=== PATIENT | male | born 1960 | race Caucasian/White ===

== ENCOUNTER 2019-06-07 15:52 | Inpatient (IN) | payer BC ==
[2019-06-07] VITALS (17 sets, daily range): BP systolic 101–120; BP diastolic 43–76
[~2019-06-07] VITALS: Ht 170.2 cm; Wt 86.1 kg
[~2019-06-07 15:52] MED LIST: ASPIRIN81 M2 PO; HUMALOG100 UNIT/1 SQ; KEFLEX500 MG PO; LANTUS SUBQ; LEVAQUIN 500 M500 MG PO; PRAVACHOL40 MG PO; SYNTHROID88 MCG PO; VITAMIN D35000 UNI2 PO
[2019-06-07 16:15] LABS: ABSOLUTE BASOPHILS 0.1 thou/uL (0.0-0.2); ABSOLUTE EOSINOPHILS 0.2 thou/uL (0.0-0.7); ABSOLUTE LYMPHOCYTES 4.2 thou/uL (0.8-5.3); ABSOLUTE MONOCYTES 0.9 thou/uL (0.0-1.2); ABSOLUTE NEUTROPHILS 5.2 thou/uL (1.6-8.1); EOSINOPHILS 1.9 %; HEMATOCRIT 48.2 % (42.0-52.0); HEMOGLOBIN 16.1 gm/dL (14.0-18.0); LYMPHOCYTES 39.7 %; MCHC 33.4 g/dL (28.0-37.0); MCV 92.9 fL (80.0-100.0); MONOCYTES 8.1 %; MPV 8.9 fl. (7.2-11.1); NUCLEATED RBCS 0 /100WBC; PLATELET COUNT* 279 thou/uL (150-400); POLYS 49.3 %; RBC 5.19 mil/uL (4.50-6.00); RDW-CV 12.7 % (10.5-14.5); WBC 10.6 thou/uL (4.0-11.0)
[2019-06-07 16:26] LABS: APTT 24.5 Seconds (25.0-31.3); PROTIME 10.1 Seconds (9.20-11.50)
[2019-06-07 16:28] LABS: CALCIUM 8.8 mg/dL (8.5-10.1); CREATININE 1.1 mg/dL (0.6-1.3); POTASSIUM 4.2 mmol/L (3.5-5.1)
[2019-06-07 16:39] LABS: ALBUMIN 3.7 g/dL (3.4-5.0); MAGNESIUM 2.1 mg/dL (1.8-2.4); TOTAL BILIRUBIN 0.4 mg/dL (<0.1-1.0); TOTAL PROTEIN 7.1 g/dL (6.4-8.2)
--- NOTE | 2019-06-07 17:05 | NUR ---
ALL INTERVENTIONS AND MEDICATIONS GIVEN ARE DOCUMENTED ON THE STEMI LOG. PT TAKEN TO GAME TECHNICIAN.
[2019-06-07 21:53] LABS: BE -17.6 mmol/L (-2 to +3); PO2 75.3 mmHg (75.0-100.0)
[2019-06-07 21:54] LABS: PCO2 89.1 mmHg (35.0-45.0)
[2019-06-08] VITALS (90 sets, daily range): BP systolic 68–161; BP diastolic 25–94
[2019-06-08 00:06] LABS: BE -15.9 mmol/L (-2 to +3); PO2 81.8 mmHg (75.0-100.0)
[2019-06-08 00:07] LABS: PCO2 78.2 mmHg (35.0-45.0); pH 6.973 (7.340-7.450)
[2019-06-08 02:21] LABS: HEMATOCRIT 50.2 % (42.0-52.0); MCH 30.4 pg (26.0-34.0); MCHC 31.9 g/dL (28.0-37.0); MCV 95.4 fL (80.0-100.0); MPV 8.7 fl. (7.2-11.1); RBC 5.26 mil/uL (4.50-6.00); RDW-CV 13.3 % (10.5-14.5); WBC 25.3 thou/uL (4.0-11.0)
[2019-06-08 02:38] LABS: BE -12.1 mmol/L (-2 to +3); PO2 104.7 mmHg (75.0-100.0)
[2019-06-08 02:40] LABS: PCO2 51.4 mmHg (35.0-45.0); pH 7.142 (7.340-7.450)
[2019-06-08 03:01] LABS: ALBUMIN 2.7 g/dL (3.4-5.0); ALKALINE PHOSPHATASE 57 U/L (46-116); ANION GAP 13 mmol/L (7-16); BUN 29 mg/dL (7-18); CHLORIDE 98 mmol/L (98-107); CHOLESTEROL 166 mg/dL (<200); CO2 20 mmol/L (21-32); HDL CHOLESTEROL 63 mg/dL (>40); LDL CHOLESTEROL 90 mg/dL (<100); SGOT 1106 U/L (15-37); SGPT 202 U/L (30-65); SODIUM 131 mmol/L (136-145); TC:HDL 2.6 Ratio (Not establshd); TOTAL BILIRUBIN 0.5 mg/dL (<0.1-1.0); TOTAL PROTEIN 5.8 g/dL (6.4-8.2); TRIGLYCERIDE 65 mg/dL (<150); VLDL 13 mg/dL (<40)
[2019-06-08 03:46] LABS: CALCIUM 6.5 mg/dL (8.5-10.1); CREATININE 2.4 mg/dL (0.6-1.3)
[2019-06-08 03:47] LABS: POTASSIUM 6.2 mmol/L (3.5-5.1)
[2019-06-08 03:48] LABS: CK-MB MASS > 900.0 ng/mL (<0.5-3.6); GLUCOSE 654 mg/dL (70-99); SERUM ASSESSMENT CLEAR; TROPONIN-I LEVEL > 200.00 ng/mL (<0.06)
[2019-06-08 04:32] LABS: POTASSIUM 4.5 mmol/L (3.5-5.1)
--- NOTE | 2019-06-08 04:50 | NUR ---
Pt transferred to ICU from [facility] following emergent PCI, arrived at 1910. Pt unresponsive, on Dopamine gtt, Levophed gtt, and IABP. Intubated and on ventilator. ABGs X3 with critical results for pH and pCO2, but improving after adjustments to ventilator settings. Also started on insulin gtt for BG control. Pt Temp too low to be obtained upon arrival to ICU. Michael Tellez initiated. Eventually, Michael Tellez dc'd as temp lyudmila above 98.6. T max 101. Pt diaphoretic. Pt now has cough reflex. Will continue to monitor.
[2019-06-08 07:02] LABS: PCO2 40.9 mmHg (35.0-45.0); PO2 115.4 mmHg (75.0-100.0)
[2019-06-08 07:05] LABS: pH 7.198 (7.340-7.450)
--- NOTE | 2019-06-08 08:32 | CON ---
[address] [address] CONSULTATION Name: GWENDOLYN RODRIGUEZ Room: [address] IN .R.#: [id number] Admission: 06/07/19 Attend Phys: Ho Bales MD Discharge: Date of : 62 Report #: [id number] THIS REPORT FOR: //name// CC: Ho Riojas DATE OF SERVICE: 06/07/2019 CARDIOLOGY CONSULTATION INDICATION: Chest pain. HISTORY OF PRESENT ILLNESS: This is a 59-year-old gentleman with history of diabetes, hypertension, tobacco use, presenting with chest pain and shortness of breath. The patient is presently intubated. History is obtained from medical records. It seems that he was having chest pain radiating to both arms on and off for the past several days. Tod, it got worse and he felt dyspneic and diaphoretic. He tried to drive to the hospital, unable to. He called 911. EKG by EMS revealed sinus tachycardia with Q-waves in the anteroseptal leads with ST elevation in V1 through V4 and aVL, ST depressions in the inferior leads. In the ER, he was noted to be in respiratory distress and required intubation. He is presently in sinus rhythm. ALLERGIES: PENICILLIN. MEDICATIONS: Include insulin, aspirin, and Pravachol at home. SOCIAL HISTORY: Positive tobacco, at least 1-1/2 packs per day. FAMILY HISTORY: Unobtainable. REVIEW OF SYSTEMS: Unobtainable. PHYSICAL EXAMINATION: VITAL SIGNS: Blood pressure is 100/60. Heart rate is 120 beats per minute. GENERAL APPEARANCE: This is a well-developed, well-nourished male, intubated and sedated. HEENT: Normocephalic, atraumatic. NECK: Supple. LUNGS: Diminished breath sounds at the bases. CARDIAC: Tachycardic. S1, S2 positive. ABDOMEN: Soft, nontender. EXTREMITIES: No cyanosis, no edema. ECG reveals sinus tachycardia, Q WAVES in V1 through V3 with ST elevation in aVL and ST depression in the inferior leads, [place] [address] CONSULTATION Name: GWENDOLYN RODRIGUEZ Room: [address] IN [facility]#: [id number] Admission: 06/07/19 Attend Phys: Ho Bales MD Discharge: Date of : 62 Report #: [id number] ASSESSMENT AND PLAN: 1. Acute coronary syndrome, acute myocardial infarction. The initial troponin level is 2.2. Suspect the infarct occurred within the past few days. We will proceed with cardioversion and cardiac catheterization. 2. Respiratory failure/congestive heart failure, most likely attributed to recent myocardial infarction. We will need ICU support. 3. Diabetes mellitus, on insulin, as per hospitalist. 4. Tobacco use, we will recommend complete smoking cessation. <ELECTRONICALLY SIGNED> By: Luis Glasgow MD 06/08/19 0832 1654 2131MD merlene Lopez
[2019-06-08 09:13] LABS: INFLUENZA A ANTIGEN Negative (Negative); INFLUENZA B ANTIGEN Negative (Negative)
[2019-06-08 09:13] LABS: URINE BLOOD 3+ (Negative); URINE CLARITY SL CLOUDY; URINE COLOR YELLOW; URINE GLUCOSE-RANDOM NEGATIVE (Negative); URINE KETONES NEGATIVE (Negative); URINE LEUKOCYTES-REFLEX NEGATIVE (Negative); URINE NITRITE-REFLEX NEGATIVE (Negative); URINE PROTEIN 2+ (Negative); URINE SPECIFIC GRAVITY 1.015 (1.005-1.030); URINE UROBILINOGEN 0.2 E.U./dl (0.2-1.0)
[2019-06-08 09:34] LABS: URINE POTASSIUM-RANDOM 59.9 mmol/L
[2019-06-08 10:01] LABS: URINE BILIRUBIN 1+ (Negative)
[2019-06-08 10:02] LABS: ICTOTEST (BILI CONFIRMATORY) Negative (Negative)
--- NOTE | 2019-06-08 10:26 | CARD ---
[address] [address] CARDIAC CATH REPORT Name: GWENDOLYN RODRIGUEZ Room: [address] IN M.R.#: [id number] Admission: 06/07/19 Attend Phys: Ho Bales MD Discharge: Date of : 62 Report #: [id number] THIS REPORT FOR: //name// APPROVED REPORT Study performed: 06/07/2019 16:19:14 Patient Details The patient is a 59 year-old male Event Personnel May Rust Smart Grid Engineer, Julio Constantino ADULT NEUROLOGIST Monitor, Ho Mcleod ADULT NEUROLOGIST Scrub, Luis Glasgow Tool Design Checker Indication CHF Current Status: Yes , STEMI , Dyspnea, Chest pain, The patient presented with several days of chest pain, but developed significant dyspnea prior to admission. In the ER, he was in respiratory failure, requiring intubation. The ECG revealed Q waves in the anteroseptal leads with ST elevation, suggestive for aneurysm formation. He developed hypotension attributed to cardiogenic shock. Prior to cardiac catheterization, he was started on multiple pressors and an intra-aortic balloon pump was placed. Risk Factors Hypercholesterolemia, Hypertension, Diabetes Tobacco History () Procedure Narrative A 6fr Ultimum Sheath sheath was inserted into the RFA. Coronary angiography was performed using coronary diagnostic catheters. The right coronary system was accessed and visualized with a JR4 catheter. The left coronary system was accessed and visualized with a JL4 catheter. The left ventricle was accessed and visualized with a PIG catheter. Intraoperative Conscious Sedation Fluoro Time: 19 minutes Dose: DAP [id number] cGycm2 3021 mGy Contrast Type and Amount: Visipaque 350 ml Coronary Angiography The patient's coronary [place] [address] CARDIAC CATH REPORT Name: GWENDOLYN RODRIGUEZ Room: [address] IN [facility]#: [id number] Admission: 06/07/19 Attend Phys: Ho Bales MD Discharge: Date of : 62 Report #: [id number] Diagnostic Cath Left Main This is a large caliber vessel with a haziness in the mid and distal segments. LAD There is a subtotal occlusion at the ostium, with SHARON 1 blood flow. Circumflex This vessel was completely occluded at the ostium, has evidence for calcification. Right Coronary This vessel was patent with a moderate stenosis in the proximal segment. R PDA This vessel was patent with a moderate stenosis in the proximal segment. RPLV This vessel was patent. Left Ventriculography The left ventricle is dilated in size with abnormal contractility. The left ventricular ejection fraction is estimated to be 10-15%. Left ventricular wall motion abnormalities are present. Only the basal inferior segment exhibited contractility. Hemodynamics The aortic pressure is 119/55 mmHg with a mean of 34 mmHg. The left ventricular pressure is 62/5 mmHg with a mean of mmHg. The left ventricular end diastolic pressure is 23 mmHg. PCI Technique Lesion Patient was preloaded with Angiomax IV 11 ml. Percutaneous coronary intervention was performed on the proximal left anterior descending artery segment. The lesion stenosis prior to intervention was 99% with SHARON 1 flow. A 6FR XB 3.5 100CM Guide Catheter was used to engage the ostium. A IG: Luge Wire 180 Interventional Guidewire was used to cross the lesion. BALLOON DILATION A Balloon catheter Trek RX 2.5 X 15 was inserted and inflated up to 12.00atm for 7seconds. Additional Inflation: 13.00atm for 15seconds. STENT DEPLOYMENT A drug-eluting stent Zeeshan RX Stent 3.0X18mm was inserted and inflated up to 12.00atm for 6seconds. The stent was postdilated with a 3.25 mm noncompliant balloon, inflated up to 18 tarah. Final angiography reveals 10 % stenosis with SHARON 3 [place] [address] CARDIAC CATH REPORT Name: GWENDOLYN RODRIGUEZ Room: [address]#: [id number] Admission: 06/07/19 Attend Phys: Ho Bales MD Discharge: Date of : 62 Report #: [id number] A stent Zeeshan RX Stent 3.0X15mm was inserted and inflated up to tarah for seconds. Additional Inflation: 20.00atm for 16seconds. PCI Technique Lesion 2 Percutaneous coronary intervention was performed on the left main artery. The lesion stenosis prior to intervention was 70% with SHARON 1 flow. Balloon Dilation A Balloon catheter Zeeshan RX Stent 3.5X12mm was inserted and inflated up to 18atm for 10seconds. Final angiography reveals 0 % stenosis with SHARON 3 flow. STENT DEPLOYMENT A stent Zeeshan RX Stent 3.5X12mm was inserted and inflated up to tarah for seconds. Additional Inflation: 18.00atm for 6seconds. PCI Technique Lesion 3 Percutaneous coronary intervention was performed on the mid LAD. The lesion stenosis prior to intervention was 80% with SHARON 1 flow. Balloon Dilation A Balloon catheter Georgiana RX Stent 2.5 X18mm was inserted and inflated up to 18atm for 10seconds. Final angiography reveals 5 % stenosis with SHARON 3 flow. Conclusion 1. The patient presented in critical condition with cardiogenic shock, requiring multiple pressors and IABP insertion. 2. Placement of drug-eluting stents into the left main and proximal LAD segments, with latter-day of SHARON-3 blood flow. 3. 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 4. The RCA is a dominant vessel with moderate lesions. 5. Severe LV dysfunction, manifested with hypotension and heart failure. 6. Recommend full ICU support and dual antiplatelet therapy. <ELECTRONICALLY SIGNED> By: Luis Glasgow MD 06/08/19 1026 1026 1026Luis Glasgow MD /INF
[2019-06-08 10:33] LABS: COARSE GRANULAR CASTS >10 Many /LPF (None Seen); FINE GRANULAR CASTS 0-3 Few /LPF (None Seen); HYALINE CASTS 0-3 Few /LPF (None Seen)
[2019-06-08 10:35] LABS: BACTERIA-REFLEX >30 Many /HPF (None Seen); MUCUS 0-3 Light strn/LPF (None Seen); SQUAMOUS 0-3 Few /LPF (0-3)
[2019-06-08 10:36] LABS: CRYSTALS None Seen /LPF (None Seen)
[2019-06-08 12:40] LABS: BE -7.8 mmol/L (-2 to +3); PCO2 37.6 mmHg (35.0-45.0); PO2 97.1 mmHg (75.0-100.0)
[2019-06-08 12:41] LABS: pH 7.297 (7.340-7.450)
--- NOTE | 2019-06-08 14:14 | NUR ---
PT CONTINUES TO BE ON 1:1 RATIO.PT IS MOSTLY UNRESPONSIVE ALTHOUGH PT SQUEEZED EYES WHILE NASAL SWABS WERE COLLECTED.PT REMAINS INTUBATED PER ORDERED SETTINGS.PULMONARY CONSULTED FOR VENT MANAGEMENT.PT REMAINS ON BALLOON PUMP THROUGH LEFT GROIN-SITE CLEAN, DRY, AND INTACT.NS/HEPARIN (1000ML/1000UNITS) MIX PRESSURE BAG SET UP THROUGH BALLOON PUMP MACHINE TO MONITOR PT INTERNAL BLOOD PRESSURE, WITH ASSISTANCE FROM CLINICAL STAFF EDUCATOR.RIGHT FEMORAL CENTRAL SHEATH SECURE AND PATENT WITH IVF INFUSING.VASOPRESSIN INFUSION STARTED.SLOWLY TITRATING DOPAMINE DOWN.HEART RATE SLOWLY DECREASING. RIGHT GROIN ART LINE SECURE AND PATENT.DELANEY SECURE AND PATENT WITH ADEQUATE URINE OUTPUT.NEW UROMETER BAG PLACED TO MONITOR HOURLY I&O.RADIAL AND PEDIAL PULSES DOPPLERED AND MARKED FOR Q1 HOUR CHECKS. PULSES REMAIN WEAK AND EXTREMITIES ARE COOL.PT HAS RAN LOW GRADE FEVER THIS SHIFT.Q1 HOUR AUGMENTATION CHECKS COMPLETED ON BALLOON PUMP WITH STRIPS PRINTED Q4HR.PT INSULIN SHUT OFF @ 1404 DUE TO HYPOGLYCEMIA-DOCTOR NOTIFIED FOR NEW ORDERS.NG SECURE @ 64 WITH LIS-COFFEE GROUND DRAINAGE.EKG COMPLETED PER POST CATH PROTOCOL.HEPRAIN DRIP INFUSING PER PROTOCOL.PT SCREENED SEPSIS POSITIVE THIS AM-DOCTOR NOTIFIED WITH NEW ORDERS RECEIVED.WILL CONTINUE TO MONITOR FOR DURATION OF SHIFT.
--- NOTE | 2019-06-08 15:38 | EKG ---
[place] [address] ELECTROCARDIOGRAM REPORT Name: GWENDOLYN RODRIGUEZ Room: [address] ADM IN M.R.#: [id number] Admission: 06/07/19 Attend Phys: Ho Bales MD Discharge: Date of : 62 Report #: [id number] THIS REPORT FOR: //name// [facility] ED Test Date: 2019-06-07 Test Time: 16:04:07 Pat Name: GWENDOLYN RODRIGUEZ Department: Room: [facility] Gender: M Wax Room Supervisor: TP : 1960 Requested By: Rogelio Bernard Order Number: [id number] MD: Fabien Roberts Measurements Intervals [place] Rate: 138 P: -22 FL: 144 QRS: 16 QRSD: 96 T: 81 QT: 348 QTc: 528 Interpretive Statements Sinus tachycardia Multiform ventricular premature complexes Probable anterolateral infarct, acute Prolonged QT interval Artifact in lead(s) I,II,III,aVL,aVF,V4,V5 No previous ECG available for comparison Electronically Signed On 06-08-2019 15:37:38 ROOM SERVICE WAITER by Fabien Roberts [email or web address] <ELECTRONICALLY SIGNED> By: Fabien Roberts MD, FACC 06/08/19 1537 1604 1604 Fabien Roberts MD, FAC /EPI
[2019-06-08 21:45] LABS: CALCIUM 7.3 mg/dL (8.5-10.1); CREATININE 1.6 mg/dL (0.6-1.3); POTASSIUM 4.9 mmol/L (3.5-5.1)
[2019-06-09] VITALS (40 sets, daily range): BP systolic 88–173; BP diastolic 31–111
[2019-06-09 03:40] LABS: HEMATOCRIT 43.2 % (42.0-52.0); HEMOGLOBIN 14.2 gm/dL (14.0-18.0); MCH 30.3 pg (26.0-34.0); MCV 91.8 fL (80.0-100.0); MPV 9.2 fl. (7.2-11.1); NUCLEATED RBCS 0 /100WBC; RBC 4.71 mil/uL (4.50-6.00); WBC 19.6 thou/uL (4.0-11.0)
[2019-06-09 03:47] LABS: PLATELET COUNT* 134 thou/uL (150-400)
[2019-06-09 04:03] LABS: ALBUMIN 2.4 g/dL (3.4-5.0); CREATININE 1.5 mg/dL (0.6-1.3); MAGNESIUM 1.6 mg/dL (1.8-2.4); PHOSPHORUS* 3.6 mg/dL (2.5-4.9); POTASSIUM 4.9 mmol/L (3.5-5.1); TOTAL BILIRUBIN 0.6 mg/dL (<0.1-1.0); TOTAL PROTEIN 5.6 g/dL (6.4-8.2)
[2019-06-09 05:34] LABS: BE -3.5 mmol/L (-2 to +3); PCO2 37.7 mmHg (35.0-45.0); PO2 102.5 mmHg (75.0-100.0); pH 7.369 (7.340-7.450)
[2019-06-09 05:39] LABS: ABSOLUTE LYMPHOCYTES 1.4 thou/uL (0.8-5.3); ABSOLUTE MONOCYTES 0.6 thou/uL (0.0-1.2); ABSOLUTE NEUTROPHILS 17.6 thou/uL (1.6-8.1); PLATELET ESTIMATE DECREASED
[2019-06-09 05:40] LABS: ANISOCYTOSIS 1+; POIKILOCYTOSIS 1+
--- NOTE | 2019-06-09 07:29 | NUR ---
ASSESSMENTS CHARTED. PATIENT REMAINS ON VENTILATOR AND BALLOON PUMP. LEFT GROIN INSERTION SITE CLEAN, DRY, AND INTACT. RIGHT GROIN ART LINE AND VENOUS SHEATH IN PLACE. PRESSORS, SEDATION, AND CARDIAC MEDICATIONS INFUSING. DOPAMINE AT 4, LEVOPHED AT 27, VASOPRESSIN AT 0.04, VERSED AT 8, HEPARIN AT 844 UNITS/HR, AMIODARONE AT 0.5. PATIENT'S URINE OUTPUT REMAINED GRATER THAN 0.5 ML/KG/HR. PERIPHERAL PULSES INTACT. DURING THE SHIFT, THE RIGHT PEDAL PULSE WAS NOT AUDIBLE VIA DOPPLER. CALLED CARDIOLOGY AND RECIEVED ORDERS NOT TO TAKE ANY ACTION AT THIS TIME. ALL OTHER PULES +1. LOWER EXTREMITY PULSES PRESENT WITH DOPPLER USE. AUGMENTATION CHECKS Q1H. PLAN IS FOR PATIENT TO BE TRANSFERRED TO TRANSPLANT CENTER. NO WORD YET ON WHERE THE PATIENT MAY BE PLACED. FAMILY NOT NOTIFIED PER PATIENT'S WISHES BEFORE SEDATION.
--- NOTE | 2019-06-09 09:48 | NUR ---
WAS ASKED TO ARRANGE TRANSFER TO [facility] FOR POSSIBLE LVAD. CALL TO [facility] DR WOOD CALL/ROSEMRAIE. HEARD BACK AT [address] LAKEISHA LEON ACCEPTED PT AND HE WILL GO TO [facility] RM [facility]. CHART COPIED. RN HAS NUMBER TO CALL REPORT [phone]. SET UP AMBULANCE FOR 1030 AND UPDATED NURSE. SHE HAS CONTACTED PT'S SON. HE IS COMING FROM [place]. PT IS VENTED.
--- NOTE | 2019-06-09 09:54 | NUR ---
NOTIFIED SON OF PATIENT CONDITION PER DR JONES. SON ON HIS WAY FROM [facility]. NOTIFIED SON OF ACCEPTANCE AT [facility] [place]. CALLED AND UPDATED ON TRANSPORT AND NEW ROOM NUMBER. ALL QUESTIONS ANSWERED.
--- NOTE | 2019-06-09 10:49 | EKG ---
[place] [address] ELECTROCARDIOGRAM REPORT Name: GWENDOLYN RODRIGUEZ Room: [address] ADM IN M.R.#: [id number] Admission: 06/07/19 Attend Phys: Ho Bales MD Discharge: Date of : 62 Report #: [id number] THIS REPORT FOR: //name// [facility] Test Date: 2019-06-08 Test Time: 13:52:32 Pat Name: GWENDOLYN RODRIGUEZ Department: Room: [address] Gender: M Sewer Pipe Layer: DOUG : 1960 Requested By: Luis Glasgow Order Number: [id number] Reading MD: Gabriel Gupta Measurements Intervals [place] Rate: 117 P: 72 GA: 162 QRS: 97 QRSD: 90 T: -56 QT: 292 QTc: 408 Interpretive Statements Sinus tachycardia Anterior infarct Minimal ST elevation, lateral leads Compared to ECG 06/07/2019 16:04:07 Ventricular premature complex(es) no longer present Prolonged QT interval no longer present Myocardial infarct finding still present Electronically Signed On 06-09-2019 10:48:52 AERODYNAMICS PROFESSOR by Gabriel Gupta [email or web address] <ELECTRONICALLY SIGNED> By: Gabriel Gupta MD, FAC 06/09/19 1048 1352 1352 Gabriel Gupta MD, [facility] /EPI
--- NOTE | 2019-06-09 10:57 | NUR ---
PATIENT TRANSFERED BY AMBULANCE TO [facility] [place] AT THIS TIME. LOUANN MARIE AND FRANCISCO MARIE TRANSFERING WITH PATIENT AND AMBULANCE CREW TO MANAGE BALLOON PUMP AND MANY PRESSORS. [facility] TRANSFER TEAM CALLED TO NOTIFIY PATIENT DEPARTING. SON ALSO CALLED TO NOTIFY PATIENT DEPARTING FROM [facility]. BELONGINGS RELEASED TO FRANCISCO MARIE BY SECURITY.
--- NOTE | 2019-06-10 08:10 | CON ---
[address] [address] CONSULTATION Name: GWENDOLYN RODRIGUEZ Room: [address] IN ..#: [id number] Admission: 06/07/19 Attend Phys: Ho Bales MD Discharge: 06/09/19 Date of : 62 Report #: [id number] THIS REPORT FOR: //name// CC: Ho Riojas DATE OF SERVICE: 06/09/2019 NEPHROLOGY CONSULTATION CONSULTING PHYSICIAN: Dr. Haynes. REASON FOR NEPHROLOGY CONSULTATION: Acute renal failure. REASON FOR ADMISSION: Chest pain and STEMI. HISTORY OF PRESENT ILLNESS: This is a 59-year-old male who has past medical history of diabetes, hypertension, tobacco use, came in with chest pain and shortness of breath, found to have STEMI. He was in acute cardiogenic shock on presentation intubated, on multiple pressors, was taken to bobcat driver/labor on the day of admission, which is 06/07/2019 and 2 stents were placed, one in proximal LAD and one in left main. The patient also has developed aspiration pneumonitis. He is currently in the ICU on 3 pressors. His creatinine was 2.4 initially, but it came down to 1.5 now. His urine output has been good, 60-80 mL over the last 24 hours and there is a plan for transferring him to a transplant center because of severely decreased ejection fraction of 10-15%, as soon as he can get a place to go to. There is no family at the bedside. ALLERGIES: TO PENICILLIN. REVIEW OF SYSTEMS: Cannot obtain from the patient because he is intubated and sedated. PAST MEDICAL HISTORY: Includes history of diabetes, hypertension, tobacco use, hyperlipidemia. HOME MEDICATIONS: Include pravastatin, insulin glargine, lispro, aspirin, ergocalciferol. PAST SURGICAL HISTORY: Not known. SOCIAL HISTORY: He is a current everyday smoker. No recreational drug use reported. In the past use of alcohol reported. PHYSICAL EXAMINATION: VITAL SIGNS: Blood pressure is 118/45, temperature orosco, he was 38.3, [place] [address] CONSULTATION Name: GWENDOLYN RODRIGUEZ Room: [address]#: [id number] Admission: 06/07/19 Attend Phys: Ho Bales MD Discharge: 06/09/19 Date of : 62 Report #: [id number], respiratory rate was 26, and pulse ox 100%, he was 65% FiO2 on the ventilator. GENERAL: He is intubated and sedated. HEAD AND EYES: Atraumatic, normocephalic. Normal conjunctivae. EARS, NOSE, AND THROAT: Normal ears and nose and mucous membranes are moist and he has ET tube in place. NECK: No JVD seen. CHEST: Bilaterally diminished breath sounds, but no crackles or wheezing heard. CARDIOVASCULAR: S1, S2 normal. No murmurs. ABDOMEN: Soft, nondistended. Bowel sounds decreased. LOWER EXTREMITIES: There is no lower extremity edema. NEUROLOGICAL FUNCTION: He is currently sedated. PSYCHIATRIC: Cannot assess right now. LABORATORY DATA: WBC 13.6, hemoglobin 14.2, platelet count is 134. Sodium is 136, potassium is 4.9, creatinine 1.5 and other labs are reviewed. IMAGING: Chest x-ray was reviewed. ASSESSMENT: 1. Acute kidney injury in the setting of cardiogenic shock, the patient had ST elevation myocardial infarction. The patient also received contrast on 06/07/2019, but it does not look like he has developed contrast-induced nephropathy. Baseline creatinine 2.4 on admission and coming down at present. He is nonoliguric. UA showed 10-20 rbc's, 15-25 wbc's, per high power field, granular casts and hyaline casts and 2+ protein, 3+ blood and renal imaging has not been done yet. 2. Acute cardiogenic shock and ST elevation myocardial infarction, status post 2 stents, severely decreases left ventricular ejection fraction of 10-15%. 3. Aspiration pneumonitis, acute respiratory failure. 4. Hypertension. 5. Shock liver. 6. Hypocalcemia. 7. Combination of metabolic and respiratory acidosis, now better. He also had V-tach. PLAN: 1. His creatinine is so far improving as his blood pressure is better and his heart has been stabilized. We will continue to monitor his creatinine. 2. No need for bicarbonate fluids. We will change his IV fluids, normal saline at 75 mL an hour. 3. We will replace his calcium. 4. We will check a renal ultrasound just for [place] [address] CONSULTATION Name: GWENDOLYN RODRIGUEZ Jose Room: [address]#: [id number] Admission: 06/07/19 Attend Phys: Ho Bales MD Discharge: 06/09/19 Date of : 62 Report #: [id number] 5. Try to keep his MAP around 65-70. 6. We will continue to follow along with you. The patient is critically sick. <ELECTRONICALLY SIGNED> By: Emiliana Darnell MD 06/10/19 0810 0910 1025Areuben Darnell MD /nt
== END 2019-06-09 11:00 | disposition short-term general hospital (02) | DRG 246 ==
LOC: M.ERS 15:52 → M.CL 15:52 → M.ICU 19:10 → M.TBA-CV 19:10 → M.ICU 19:23
PROVIDERS: Emergency Medicine Emergency Medical Services; Internal Medicine Cardiovascular Disease; Pediatrics; ADMIT Internal Medicine
DX: I21.3 ST elevation (STEMI) myocardial infarction of unspecified site (principal); J96.01 Acute respiratory failure with hypoxia; R57.0 Cardiogenic shock; J69.0 Pneumonitis due to inhalation of food and vomit; K72.00 Acute and subacute hepatic failure without coma; J96.02 Acute respiratory failure with hypercapnia; N17.0 Acute kidney failure with tubular necrosis; I50.21 Acute systolic (congestive) heart failure; E87.2 Acidosis; I47.2 Ventricular tachycardia; I11.0 Hypertensive heart disease with heart failure; F17.210 Nicotine dependence, cigarettes, uncomplicated; E78.5 Hyperlipidemia, unspecified; I50.9 Heart failure, unspecified; E83.51 Hypocalcemia; I25.5 Ischemic cardiomyopathy; E11.65 Type 2 diabetes mellitus with hyperglycemia; Z28.21 Immunization not carried out because of patient refusal; Z71.6 Tobacco abuse counseling; Z88.0 Allergy status to penicillin; Z79.4 Long term (current) use of insulin